=== PATIENT | female | born 1965 | race Caucasian/White ===

== ENCOUNTER 2019-04-01 17:09 | Emergency (ER) | payer OTHER, SELFPAY ==
[2019-04-01 17:18] VITALS: BMI 37.3
[2019-04-01 17:24] VITALS: PULSE 64
--- NOTE | 2019-04-01 17:40 | ED_ITS ---
HPI - Extremity Problem General: Chief complaint: Extremity Injury, Upper Stated complaint: Left hand pain Time Seen by Provider: 04/01/19 17:40 Source: patient Mode of arrival: ambulatory Limitations: no limitations History of Present Illness: HPI Narrative: was working at [employer] when she had a heavy crate fall onto her hand/wrist/arm MD Complaint: extremity pain Onset (ago): hour(s) Pain Consistency: constant Location: left Radiation: none Relieving factors: nothing Exacerbating factors: range of motion Associated symptoms: Reports no associated symptoms Review of Systems Musc: Reports: extremity pain (L hand/wrist/forearm) Neuro: Denies: numbness in extremities, weakness in extremities or changes in sensation PFSH ED PFSH: Statuses (acute, chronic, etc) shown below reflect problem list status as previously entered and may not be historically accurate Social History Smoking and tobacco status: never smoked Physical Exam Const: COMMON NORMALS: no apparent distress, oriented x3 and well nourished Extremity: LEFT UPPER EXTREMITY: Yes wrist (mild tenderness/swelling, full ROM) and Yes hand & digits (TTP/swelling to dorsum of L hand) Neuro: COMMON NORMALS: oriented x3 Skin: NARRATIVE SKIN EXAM: small amount of ecchymosis to dorsum of L hand, wrist, forearm Course Vital Signs: Vital signs: Vital Signs Pulse Rate 64 04/01/19 17:24 MDM - Extremity (Nontraumatic) Imaging Data^: L hand: Radiologist's impression: [place] [address] XRay Report Signed Patient: Sharona Ruiz MR#: [id number] : 1965 Acct:[id number] Age/Sex: 53 / F ADM Date: 04/01/19 Loc: ER Attending Dr: Ordering Physician: Gerri Aaron Date of Service: 04/01/19 Procedure(s): XR hand LT min 3V* 13546 Accession Number(s): [id number] cc: Gerri Aaron PROCEDURE INFORMATION: Exam: XR Left Hand Exam date and time: 04/01/2019 5:41 PM Age: 53 years old Clinical indication: Injury or trauma; Injury history: Not specified; Initial encounter; Blunt trauma (contusions or hematomas; Hand; Left; Injury date: 04/01/19 TECHNIQUE: Imaging protocol: XR Left hand. Views: 3 or more views. COMPARISON: No relevant prior studies available. FINDINGS: Bones/joints: There are mild degenerative changes of the interphalangeal joints. No dislocation. No acute fracture is identified. Soft tissues: No foreign body. There is mild soft tissue edema. XR/XR hand LT min 3V* 10808 IMPRESSION: No acute bony abnormality is identified. Dictated By: Sarah Rothman 04/01/191857 Signed By: Sarah Rothman 04/01/191858 L wrist: Radiologist's impression: [place] [address] XRay Report Signed Patient: Sharona Ruiz MR#: [id number] : 1965 Acct:[id number] Age/Sex: 53 / F ADM Date: 04/01/19 Loc: ER Attending Dr: Ordering Physician: Gerri Aaron Date of Service: 04/01/19 Procedure(s): XR wrist LT min 3V* 80057 Accession Number(s): [id number] cc: Gerri Aaron PROCEDURE INFORMATION: Exam: XR Left Wrist Exam date and time: 04/01/2019 5:43 PM Age: 53 years old Clinical indication: Injury or trauma; Injury history: Unspecified; Initial encounter; Blunt trauma (contusions or hematomas; Wrist; Left TECHNIQUE: Imaging protocol: XR Left wrist. Views: 3 or more views. COMPARISON: No relevant prior studies available. FINDINGS: Bones/joints: No acute fracture or dislocation. Soft tissues: There is soft tissue edema. No foreign body. XR/XR wrist LT min 3V* [id number] IMPRESSION: 1. There is soft tissue edema. 2. No acute bony abnormality is identified. Dictated By: Sarah Rothman 04/01/191858 Signed By: Sarah Rothman 04/01/191899 L forearm: Radiologist's impression: [place] [address] XRay Report Signed Patient: Sharona Ruiz MR#: [id number] : 1965 Acct:[id number] Age/Sex: 53 / F ADM Date: 04/01/19 Loc: ER Attending Dr: Ordering Physician: Gerri Aaron Date of Service: 04/01/19 Procedure(s): XR forearm LT 2V 15979 Accession Number(s): [id number] cc: Gerri Aaron PROCEDURE INFORMATION: Exam: XR Left Forearm Exam date and time: 04/01/2019 5:43 PM Age: 53 years old Clinical indication: Injury or trauma; Injury history: Unspecified; Initial encounter; Blunt trauma (contusions or hematomas; Arm, lower; Left TECHNIQUE: Imaging protocol: XR Left forearm. Views: 2 views. COMPARISON: No relevant prior studies available. FINDINGS: Bones/joints: The bone density is appropriate. No periosteal reaction. No osteomyelitis. No acute fracture or dislocation. No bony destructive changes. Soft tissues: No foreign body. No gas in the soft tissues. XR/XR forearm LT 2V 35497 IMPRESSION: No acute bony abnormality. Dictated By: Sarah Rothman 04/01/191921 Signed By: Sarah Rothman 04/01/191924 Discharge Plan Discharge Patient Disposition: Home, Self-Care Clinical Impression: Crush injury of hand Qualifiers: Encounter type: initial encounter Laterality: left Qualified Code(s): S67.22XA - Crushing injury of left hand, initial encounter Crush injury, wrist Qualifiers: Encounter type: initial encounter Laterality: left Qualified Code(s): S67.32XA - Crushing injury of left wrist, initial encounter Condition: Stable Prescriptions: No Action Paxil 40 mg Tablet 50 mg PO DAILY RF: 0 Discharge Orders: Discharge Order (Routine); Ordered 04/01/19 Ordered By: Gerri Aaron Referrals: Ryan Pandya MD [Primary Care Provider] - Activity Restrictions/Additional Instructions: Can return to work-no use of affected area until follow up with worker's comp Coding Level of Care Code ED Telephone Advice Nurse for Chg Fwd Exam Problem Focused
--- NOTE | 2019-04-01 18:20 | PC.NURSE ---
Patient continues with ice on hand. Radiology in room completed xrays. Lab notified of need for work comp testing. Patient waiting results of testing.
[2019-04-01 19:41] VITALS: BP 207/103; PULSE 74; RESP 18; O2SAT 98
== END 2019-04-01 19:30 | disposition home or self-care (01) ==
PROVIDERS: Emergency Provider Physician Assistant; Family Provider Family Medicine; PCP Family Medicine
DX: S67.42XA Crushing injury of left wrist and hand, initial encounter (principal); W20.8XXA Other cause of strike by thrown, projected or falling object, initial encounter; Y92.512 Supermarket, store or market as the place of occurrence of the external cause; Y99.0 Civilian activity done for income or pay
CPT/HCPCS: 73090; 73110; 73130; 99281

== ENCOUNTER 2019-05-05 16:06 | Outpatient (CLI) | payer OTHER, SELFPAY ==
--- NOTE | 2019-05-05 | XR_ITS ---
WS: [id number] LEFT HAND: 3 VIEW(S) TECHNIQUE: PA, oblique and lateral. HISTORY: HAND PAIN LEFT COMPARISON: None available. No acute fracture or dislocation. 2 mm osseous density at the third PIP joint is probably degenerativ e and was present on the prior study. No soft tissue or bone abnormality. XR/XR hand LT min 3V* [id number] IMPRESSION: No acute LEFT hand abnormality.
== END 2019-05-05 16:07 | disposition home or self-care (01) ==
LOC: RADOUTREAD 05-08 07:35
PROVIDERS: Family Provider Family Medicine; PCP Family Medicine; Visit Provider Nurse Practitioner Family
DX: Z76.89 Persons encountering health services in other specified circumstances (principal)

== ENCOUNTER → 2022-06-19 13:58 | Outpatient (BNVA) | payer BC, MEDICAID, SELFPAY | PROVIDERS: PCP Family Medicine; Referring Provider Family Medicine; Visit Provider Student in an Organized Health Care Education/Training Program | DX: M17.11 Unilateral primary osteoarthritis, right knee (principal) | CPT/HCPCS: 73560; 73565 ==

== ENCOUNTER 2022-09-17 13:47 | Outpatient (CLI) | payer BC, MEDICAID, SELFPAY ==
--- NOTE | 2022-09-17 | MM_ITS ---
WS: [id number] BILATERAL SCREENING DIGITAL BREAST MAMMOGRAPHY WITH BLAIRE DISPLACEMENT VIEWS. CAD PERFORMED. HISTORY: SCREENING COMPARISON: 06/02/2016 Bilateral craniocaudal and mediolateral oblique views are performed with tomosynthesis and SM. Blaire displacement views in CC and MLO projection also performed. Breasts composition: There are scattered areas of fibroglandular density. Scattered calcifications RIGHT breast. No suspicious mass or calcification. The implants are intact. MM/[place] [id number] IMPRESSION: BI-RADS: 2-Benign FOLLOW-UP: 1 Year Follow-up
== END 2022-09-17 13:48 | disposition home or self-care (01) ==
PROVIDERS: PCP Family Medicine; Visit Provider Family Medicine
DX: Z12.31 Encounter for screening mammogram for malignant neoplasm of breast (principal)
CPT/HCPCS: 77063; 77067

== ENCOUNTER → 2023-07-20 14:09 | Outpatient (BNVA) | payer BC, MEDICAID, SELFPAY | PROVIDERS: PCP Family Medicine; Visit Provider Student in an Organized Health Care Education/Training Program | DX: M17.0 Bilateral primary osteoarthritis of knee (principal) | CPT/HCPCS: 73560; 73565 ==

== ENCOUNTER 2024-02-28 14:45 | Outpatient (CLI) | payer BC, MEDICAID, SELFPAY ==
--- NOTE | 2024-02-28 14:47 | MM_ITS ---
WS: [id number] BILATERAL 3D TOMOSYNTHESIS DIGITAL SCREENING MAMMOGRAPHY WITH CAD CLINICAL INFORMATION: SCREENING HISTORY: Screening mammogram. No current complaints. COMPARISON: 2022 TECHNIQUE: Bilateral CC and MLO views. FINDINGS: Stable bilateral breast implants. Scattered fibroglandular densities bilaterally. No suspicious focal mass, asymmetry, calcifications, or architectural distortion. No evidence of malignancy. Incidental punctate and lucent centered calci fications. Vascular calcification. MM/MM [facility] tomosynthesis [id number] IMPRESSION: DENSITY: There are scattered areas of fibroglandular density. BI-RADS: 2 - Benign. FOLLOW UP: 1 Year Follow-up Recommend return to annual screening mammography.
== END 2024-02-28 14:46 | disposition home or self-care (01) ==
LOC: RAD 14:46
PROVIDERS: PCP Family Medicine; Visit Provider Family Medicine
DX: Z12.31 Encounter for screening mammogram for malignant neoplasm of breast (principal); R92.323 Mammographic fibroglandular density, bilateral breasts; R92.1 Mammographic calcification found on diagnostic imaging of breast
CPT/HCPCS: 77063; 77067

== ENCOUNTER → 2024-08-01 13:32 | Outpatient (BNVA) | payer BC, MEDICAID, SELFPAY | PROVIDERS: PCP Family Medicine; Visit Provider Physician Assistant | DX: M17.0 Bilateral primary osteoarthritis of knee (principal) | CPT/HCPCS: 73560; 73565 ==

== ENCOUNTER 2025-02-28 13:20 | Outpatient (CLI) | payer BC, MEDICAID, SELFPAY ==
--- NOTE | 2025-02-28 13:25 | MM_ITS ---
WS: [id number] BILATERAL 3D TOMOSYNTHESIS DIGITAL SCREENING MAMMOGRAPHY WITH CAD CLINICAL INFORMATION: SCREENING HISTORY: Screening mammogram. No current complaints. COMPARISON: 2023 TECHNIQUE: Bilateral CC and MLO views. FINDINGS: Bilateral breast implants appear intact. Scattered fibroglandular densities bilaterally. Punctate and lucent calcifications. Vascular calcification. Slightly spiculated asymmetric density outer LEFT breast. This is seen on the CCID views. Recommend further evaluation with LEFT breast diagnostic mammography and ultrasound if persistent. Unremarkable RIGHT breast MM/MM scr tomosynthesis [id number] IMPRESSION: DENSITY: There are scattered areas of fibroglandular density. BI-RADS: 0 - Incomplete: Need additional imaging evaluation. FOLLOW UP: Need Additional Imaging Recommend further evaluation with LEFT breast diagnostic mammography and ultras ound if persistent.
== END 2025-02-28 13:21 | disposition home or self-care (01) ==
LOC: RAD 13:21
PROVIDERS: PCP Family Medicine; Visit Provider Family Medicine
DX: Z12.31 Encounter for screening mammogram for malignant neoplasm of breast (principal); R92.323 Mammographic fibroglandular density, bilateral breasts; R92.1 Mammographic calcification found on diagnostic imaging of breast
CPT/HCPCS: 77063; 77067